=== PATIENT | female | born 1950 | race Caucasian/White ===

== ENCOUNTER 2018-10-06 12:18 | Outpatient (REF) | payer MEDICARE, BC, SELFPAY ==
[2018-10-06 18:43] LABS: HCT 46.4 % (36.0-46.0); HGB 15.5 g/dL (12.0-15.5); Mean Corp. HGB Concentration 33.4 g/dL (32.0-36.0); Mean Corpuscular Hemoglobin 28.4 pg (27.0-33.0); Mean Platelet Volume 11.2 fL (8.0-11.0); Platelet Count 144 x1000/uL (130-400); RBC 5.46 m/cumm (4.00-5.20); RBC Distribution Width 13.7 % (11.7-14.6); White Blood Cell Count 5.39 k/cumm (4.4-10.8)
== END 2018-10-06 12:38 ==
LOC: NCHCN 12:18
PROVIDERS: PCP Internal Medicine; Visit Provider Internal Medicine
DX: D69.6 Thrombocytopenia, unspecified (principal)
CPT/HCPCS: 85027

== ENCOUNTER 2019-02-03 19:12 | Outpatient (REF) | payer MEDICARE, BC, SELFPAY ==
[2019-02-03 19:07] LABS: Abs Immature Grans 0.01 k/cumm (0.0-0.09); Absolute Basophil Count 0.02 k/cumm (0.0-0.2); Absolute Eosinophil Count 0.09 k/cumm (0.0-0.7); Absolute Lymphocyte Count 1.92 k/cumm (1.2-3.4); Absolute Monocyte Count 0.61 k/cumm (0.11-0.7); Absolute Neutrophil Count 3.12 k/cumm (1.2-6.7); Basophils % 0.3; Eosinophils % 1.6; HCT 44.8 % (36.0-46.0); HGB 14.6 g/dL (12.0-15.5); Immature Grans % 0.2; Lymphocytes % 33.3; Mean Corp. HGB Concentration 32.6 g/dL (32.0-36.0); Mean Corpuscular Hemoglobin 28.2 pg (27.0-33.0); Mean Corpuscular Volume 86.7 fL (80-95); Mean Platelet Volume 10.9 fL (8.0-11.0); Monocytes % 10.6; Platelet Count 168 x1000/uL (130-400); RBC 5.17 m/cumm (4.00-5.20); White Blood Cell Count 5.77 k/cumm (4.4-10.8)
== END 2019-02-03 19:32 ==
LOC: NCHCN 19:12
PROVIDERS: PCP Internal Medicine; Visit Provider Internal Medicine
DX: D69.6 Thrombocytopenia, unspecified (principal)
CPT/HCPCS: 85025

== ENCOUNTER 2020-03-21 14:07 | Outpatient (REF) | payer MEDICARE, BC, SELFPAY ==
[2020-03-21 19:35] LABS: ALT 27 U/L (14-59); Anion Gap 6.1 mmol/L (3-11); BUN 12 mg/dL (7-18); CO2 28.9 mmol/L (21.0-32.0); CREATININE 0.61 mg/dL (0.55-1.02); Calcium 9.2 mg/dL (8.5-10.1); Calculated LDL 109 mg/dL (<100); Chloride 105 mmol/L (98-107); Cholesterol 187 mg/dL (<200); Glucose 92 mg/dL (74-106); HDL Cholesterol 50 mg/dL (40-60); Potassium 4.1 mmol/L (3.5-5.1); Sodium 140 mmol/L (136-145); TSH 1.14 uIU/mL (0.36-3.74); Triglyceride 143 mg/dL (<150)
[2020-03-21 23:21] LABS: Creatine Kinase 54 U/L (26-192)
== END 2020-03-21 14:27 ==
LOC: NCHCN 14:07
PROVIDERS: PCP Internal Medicine; Visit Provider Internal Medicine
DX: G62.9 Polyneuropathy, unspecified (principal); I10 Essential (primary) hypertension; M19.90 Unspecified osteoarthritis, unspecified site
CPT/HCPCS: 80048; 80061; 82550; 84443; 84460